=== PATIENT | male | born 1980 | race Caucasian/White ===

== ENCOUNTER 2018-12-23 09:16 | Emergency (ER) | payer OTHER ==
[~2018-12-23] VITALS: Ht 177.8 cm; Wt 93.0 kg
[~2018-12-23 09:16] MED LIST: BACTRIM DS TAB1 EACH PO; GENTAMICIN SU3 MG/ML OPHTHALMIC; MOBIC15 MG; NOHOMEMEDICATIONS; NORCO 5-325 TA1 EACH PO; PREDNISONE 20 M20 MG; SULFACETAMIDE 115 M1 OP; ULTRAM 50MG TAB50 MG PO; VICODIN 5-5001 EACH PO; VOLTAREN 0.1% EY5 M1 OP; ZOFRAN ODT4 MG PO; ZYRTEC10 M2 PO
[2018-12-23] MEDS ORDERED: PERCOCET PO (10:10)
[2018-12-23] MEDS ORDERED: IBUPROFEN 600600 M1 PO (10:10)
[2018-12-23 10:22] VITALS: BP 146/99
== END 2018-12-23 10:21 | disposition home or self-care (01) ==
LOC: M.ERS 09:16
DX: S46.211A Strain of muscle, fascia and tendon of other parts of biceps, right arm, initial encounter (principal); F17.200 Nicotine dependence, unspecified, uncomplicated; Z98.890 Other specified postprocedural states; Z90.49 Acquired absence of other specified parts of digestive tract; Z88.5 Allergy status to narcotic agent; X50.0XXA Overexertion from strenuous movement or load, initial encounter; Y92.89 Other specified places as the place of occurrence of the external cause; Y93.89 Activity, other specified; Y99.8 Other external cause status

== ENCOUNTER 2021-01-10 12:21 | Emergency (ER) | payer OTHER ==
[~2021-01-10] VITALS: Ht 175.3 cm; Wt 90.7 kg
[~2021-01-10 12:21] MED LIST changes: +IBUPROFEN 600600 M1 PO; +PERCOCET PO
[2021-01-10] MEDS ORDERED: PREDNISONE 20 M20 MG PO (13:51)
[2021-01-10] MEDS ORDERED: FAMOTIDINE 20 M20 MG PO (13:51)
[2021-01-10] MEDS ORDERED: EPIPEN0.3 MG/0.1 IM (13:51)
[2021-01-10 14:05] VITALS: BP 148/72
--- NOTE | 2021-01-10 15:44 | EKG ---
[place] [address] ELECTROCARDIOGRAM REPORT Name: POORNIMA JIMENES Room: [facility]#: [id number] Admission: 01/10/21 Attend Phys: Discharge: 01/10/21 Date of : 80 Date of Service: 01/10/21 1306 Report #: [id number] THIS REPORT FOR: //name// [facility] ED Test Date: 2021-01-10 Test Time: 13:06:12 Pat Name: POORNIMA JIMENES Department: Room: Gender: Contract Engineer: : [id number] Requested By: Petra Zendejas Order Number: [id number] MD: Mann Sweeney Measurements Intervals [place] Rate: 87 P: 137 WV: 131 QRS: -2 QRSD: 106 T: 30 QT: 354 QTc: 426 Interpretive Statements Sinus or ectopic atrial rhythm Low voltage, extremity leads RSR' in V1 or V2, probably normal variant Baseline wander in lead(s) V3 No previous ECG available for comparison Electronically Signed On 01-10-2021 15:44:08 CDT by Mann Sweeney [email or web address] <ELECTRONICALLY SIGNED> By: Mann Sweeney MD, [facility] 01/10/21 1544 1306 1306 Mann Sweeney MD, [facility] /EPI
== END 2021-01-10 14:06 | disposition home or self-care (01) ==
LOC: M.ERS 12:21
DX: T63.441A Toxic effect of venom of bees, accidental (unintentional), initial encounter (principal); L50.9 Urticaria, unspecified; R00.0 Tachycardia, unspecified; R06.02 Shortness of breath; R20.0 Anesthesia of skin; Z98.890 Other specified postprocedural states; Z90.49 Acquired absence of other specified parts of digestive tract; Z88.6 Allergy status to analgesic agent; Y92.89 Other specified places as the place of occurrence of the external cause